=== PATIENT | female | born 1945 | race Caucasian/White ===

== ENCOUNTER → 2017-01-06 | Outpatient (CLI) | payer MEDICARE, OTHER ==
[~2017-01-06] MED LIST: ACTOS PO; ASPIRIN81 M1 PO; EVISTA60 M1 PO; GLUCOVANCE 2.5/1 TA1 PO; LISINOPRIL10 MG PO; LORTAB 5/500 TA1 TA1 PO; MEDROL PO; VITAMIN E400 UNI2 PO
--- NOTE | ~2017-01-06 | CT114 ---
[facility] A Service of [facility] & [facility] RADIOLOGY TEXT RESULTS PATIENT: TEJINDER HAGAN LOCATION: [facility] : 43 UNIT #: [id number] AGE: [address]: Abmreen Suazo MD SEX: F ORDER DR: [id number] [place] [id number] O MR#: [id number] Acc #: [id number] NAME: TEJINDER HAGAN : 1945 SEX: F STUDY DATE/TIME: 01/06/2017 8:50 UNIT: [facility] ROOM: STUDY DESCRIPTION: CT Soft Tissue Neck W Cont Attending Physician: Ambreen Suazo M.D. Referring Physician: Ambreen Suazo M.D. Ordering Physician: Ambreen Suazo M.D. Primary Care Physician: Ambreen Suazo M.D. MEDICAL IMAGING REPORT This report is preliminary unless electronic signature is present. EXAM Soft tissue neck CT with contrast, 01/06/2017 COMPARISON Cervical spine MRI dated 05/23/[address] same date. PROCEDURE Axial contrast-enhanced soft tissue neck CT with multiplanar reformats. This CT exam was performed with one or more of the following radiation dose reduction techniques: automatic exposure control, adjustment of mA and/or kV according to patient size, and iterative reconstruction. CLINICAL HISTORY Tender right retroauricular mass for 9-10 months. FINDINGS The palpable abnormality is indicated by a cutaneous marker and there is no imaging correlate. There is no mass or inflammatory change or abnormal fluid collection in the region of interest or elsewhere in the neck. Normal size cervical lymph nodes are seen. The vascular structures, including the carotid bifurcations, are remarkable only for slight calcified plaque on the right. There is no evidence to suggest substantial stenosis by NASCET criteria on either side though the study is not optimized for that evaluation. There is no mass or other abnormality in the superior mediastinum and the lung apices are normal. There are cervical spinal degenerative changes but no fracture or bone erosion or destruction. IMPRESSION 1. Essentially normal negative contrast-enhanced soft tissue neck CT. No mass or inflammatory change or other abnormality to correspond to STS. [facility] A Service of [facility] & [facility] RADIOLOGY TEXT RESULTS PATIENT: TEJINDER HAGAN LOCATION: [facility] : 43 UNIT #: [id number] AGE: [address]: Ambreen Suazo MD SEX: F ORDER DR: the palpable abnormality as indicated by the cutaneous marker. 2. The exam is otherwise remarkable only for some spinal degenerative change but no acute abnormality is seen. Dictated by... Deven Kohler M.D. THIS IS AN ELECTRONICALLY VERIFIED REPORT Deven Kohler M.D. at 01/10/2017 3:58 PM ADAM/becki TD: 01/09/2017 12:19 JOB #: [id number] MEDICAL IMAGING REPORT Page 1 of 1
[2017-01-06 08:45] LABS: POC - CREATININE 0.79 mg/dL (0.44-1.03); POC - GFR >60.0 mL/min (>60)
== END | disposition home or self-care (01) ==
LOC: SCT 08:15
PROVIDERS: Internal Medicine
DX: R59.1 Generalized enlarged lymph nodes (principal)
CPT/HCPCS: 70491; 82565; Q9967